=== PATIENT | female | born 1955 | race Asian ===

== ENCOUNTER 2017-04-27 13:15 | Emergency (ER) | payer OTHER ==
[~2017-04-27] VITALS: Ht 162.6 cm; Wt 92.1 kg
[2017-04-27 13:17] VITALS: Ht 162.6 cm; Wt 92.1 kg
[2017-04-27 17:05] VITALS: BP 140/82
== END 2017-04-27 17:05 | disposition home or self-care (01) ==
LOC: ED 13:15
DX: S92.352A Displaced fracture of fifth metatarsal bone, left foot, initial encounter for closed fracture (principal); I10 Essential (primary) hypertension; W01.0XXA Fall on same level from slipping, tripping and stumbling without subsequent striking against object, initial encounter; Y93.89 Activity, other specified; Y92.89 Other specified places as the place of occurrence of the external cause; Y99.8 Other external cause status

== ENCOUNTER 2020-05-17 19:21 | Emergency (ER) | payer OTHER ==
[~2020-05-17] VITALS: Ht 162.6 cm; Wt 103.9 kg
[2020-05-17 19:39] VITALS: Ht 162.6 cm; Wt 103.9 kg
[2020-05-17] MEDS ORDERED: ANTIBIOTIC O500 U/GM TOP (21:24)
[2020-05-17 21:48] VITALS: BP 155/66
== END 2020-05-17 21:10 | disposition home or self-care (01) ==
LOC: ED 19:21
DX: S61.210A Laceration without foreign body of right index finger without damage to nail, initial encounter (principal); I10 Essential (primary) hypertension; W26.0XXA Contact with knife, initial encounter; Y93.G3 Activity, cooking and baking; Y92.89 Other specified places as the place of occurrence of the external cause; Y99.8 Other external cause status
CPT/HCPCS: J2001